=== PATIENT | female | born 1940 | race Caucasian/White ===

== ENCOUNTER 2019-05-27 07:55 | Outpatient (CLI) | payer MEDICARE, MEDICAID, SELFPAY ==
--- NOTE | 2019-05-27 08:04 | CT_ITS ---
WS: [id number] CT HEAD NONCONTRAST HISTORY: DEMENTIA TECHNIQUE: Contiguous axial imaging performed through the brain in 2.5 mm imaging. Bone and soft tiss ue windows. All CT scans at [facility] use at least one of these dose optimization techniq ues: automated exposure control; mA and/or kV adjustment per patient size (includes targeted exams wh ere dose is matched to clinical indication); or iterative reconstruction. DLP: 992.04 mGycm COMPARISON: 01/18/2017 No acute intracranial hemorrhage, midline shift or mass effect. Moderate atrophy involving the frontal, temporal and parietal lobes is symmetric. Minimal progression since the prior study from 2017. No acute hemorrhage or edema. Previously described lacunar infarcts in the LEFT caudate head and basal ganglia. No new infarct. Ventricles: Normal size with no hydrocephalus. Moderate calcification in the distal vertebral and intracranial carotid arteries. Vessels are also ec tatic. Paranasal sinuses: Mild LEFT maxillary sinus disease. No air-fluid levels. Mastoid air cells: Well pneumatized. Calvarium and scalp: Skull is intact with no soft tissue edema or swelling. CT/CT head wo con* [id number] IMPRESSION: 1. No acute intracranial hemorrhage or edema. 2. Moderate atrophy involving the frontal, temporal and parietal lobes. Mild p rogression since 2017. 3. Intracranial carotid and vertebral artery atherosclerosis.
== END 2019-05-27 07:56 | disposition home or self-care (01) ==
LOC: RADWPI 08:01
PROVIDERS: Family Provider Family Medicine; PCP Family Medicine; Visit Provider Internal Medicine
DX: F03.90 Unspecified dementia, unspecified severity, without behavioral disturbance, psychotic disturbance, mood disturbance, and anxiety (principal); G31.89 Other specified degenerative diseases of nervous system; I65.23 Occlusion and stenosis of bilateral carotid arteries; I67.2 Cerebral atherosclerosis
CPT/HCPCS: 70450